=== PATIENT | male | born 2000 | race Caucasian/White ===

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

== ENCOUNTER 2022-01-04 14:16 | Emergency (ER) | payer OTHER ==
[~2022-01-04] VITALS: Ht 175.3 cm; Wt 80.0 kg
[2022-01-04 14:18] VITALS: TEMP 97.9
[2022-01-04 15:14] LABS: COLLECTION METHOD CLEAN CATCH
[2022-01-04 15:15] LABS: BASO % 0.6 % (0.0-2.0); EOS # 0.1 K/mm3 (0.0-0.7); GRAN # 2.8 K/mm3 (1.4-6.5); GRAN % 59.4 % (42.2-75.2); HEMOGLOBIN 14.6 g/dl (12.5-16.1); LYMPH # 1.4 K/mm3 (1.2-3.4); LYMPH % 28.7 % (20.0-51.0); MEAN CELL VOLUME 86 fl (80.0-95.0); MEAN CORPUSCULAR HEMOGLOBIN 30 pg (26-32); MEAN CORPUSCULAR HGB CONC 35 g/dl (33.0-37.0); MEAN PLATELET VOLUME 9.5 fl (7.4-10.4); MONO # 0.5 K/mm3 (0.1-0.6); MONO % 10.1 % (1.7-9.3); PLATELET COUNT 297 K/mm3 (130-400); RED BLOOD COUNT 4.88 M/mm3 (4.20-5.60); REDCELL DISTRIBUTION WIDTH-CV 11.7 % (11.5-14.5)
[2022-01-04 15:22] LABS: PH 9 (5-8); SQUAMOUS EPITHELIAL None Seen /hpf (0-10); URINE APPEARANCE Clear (CLEAR/HAZY); URINE BACTERIA None Seen /hpf (NONE SEEN); URINE BILIRUBIN Negative (NEGATIVE); URINE BLOOD Negative (NEGATIVE); URINE COLOR Straw (YELLOW); URINE GLUCOSE Negative (NEGATIVE); URINE KETONE Negative (NEGATIVE); URINE LEUKOCYTE ESTERASE Negative (NEGATIVE); URINE NITRATE Negative (NEGATIVE); URINE PROTEIN(semi-quant) Negative (NEGATIVE); URINE RBC None Seen /hpf (0-2); URINE UROBILINOGEN Negative (NEGATIVE)
[2022-01-04 15:40] LABS: ALANINE AMINOTRANSFERASE 23 U/L (0-55); ALBUMIN 4.9 gm/dL (3.5-5.0); ALKALINE PHOSPHATASE 78 U/L (40-150); ANION GAP 14 mmol/L (7-16); AST,SGOT 66 U/L (5-34); BILIRUBIN,TOTAL 1.2 mg/dL (0.2-1.2); BLOOD UREA NITROGEN 15 mg/dL (9-21); CALCIUM 9.8 mg/dL (8.4-10.2); CARBON DIOXIDE 23 mmol/L (22-29); CHLORIDE 103 mmol/L (98-107); GLUCOSE 102 mg/dL (70-99); SODIUM 140 mmol/L (136-145); TOTAL PROTEIN 8.3 gm/dL (6.2-8.1)
[2022-01-04 15:52] LABS: TROPONIN-I < 0.010 ng/mL (0.00-0.033)
[2022-01-04] MEDS ORDERED: K-TAB20 PO ×2 (16:55→17:03)
[2022-01-04 17:05] VITALS: BP 128/86; PULSE 77
== END 2022-01-04 17:08 | disposition home or self-care (01) ==
LOC: COL.ER 14:16
PROVIDERS: Nurse Practitioner Family
DX: E87.6 Hypokalemia (principal); E86.0 Dehydration; F17.290 Nicotine dependence, other tobacco product, uncomplicated; Z28.310 Unvaccinated for COVID-19
CPT/HCPCS: J7030